=== PATIENT | female | born 1970 | race African-American/Black ===

== ENCOUNTER 2017-03-29 10:53 | Outpatient (CLI) | payer BC, OTHER | END 2017-03-29 10:54 | disposition home or self-care (01) | LOC: BICMAMMO 10:53 | DX: Z12.31 Encounter for screening mammogram for malignant neoplasm of breast (principal); R92.1 Mammographic calcification found on diagnostic imaging of breast; Z80.3 Family history of malignant neoplasm of breast | CPT/HCPCS: 77063; 77067 ==

== ENCOUNTER 2019-10-03 05:28 | Emergency (ER) | payer BC, SELFPAY ==
[2019-10-03 06:00] LABS: Bilirubin Negative (Negative); Blood, Urine Negative (Negative); Clarity Clear (Clear); Glucose, Urine (Dipstick) Normal (Negative); Ketone, Urine Negative (Negative); Leukocyte Negative Leu/uL (Negative); Nitrite Negative (Negative); Protein, Urine (Dipstick) Negative (Neg-Trace); Specific Gravity, Urine 1.005 (1.002-1.036); Urobilinogen Normal mg/dL (Less than 2); pH, Urine 7.5 (5.0-9.0)
[2019-10-03 06:02] LABS: Pregnancy Test - Urine (BHCG) Negative (Negative); Pregu Control Background? CLEAR/WHITE (CLR/WHITE); Pregu Control Bar Appear? YES (CONTROL BAR); Specific Gravity 1.005 (1.002-1.036)
--- NOTE | 2019-10-03 07:28 | RAD ---
RADIOGRAPH CHEST 1 VIEW: DATE: 10/03/2019 HISTORY: 49-year-old female with cough FINDINGS: There are no consolidations, pulmonary edema, pneumothorax, or cardiomegaly. The lateral costophrenic angles are sharp. Slightly prominent interstitial markings at lower lung zones bilaterally, left greater than right, nonspecific. IMPRESSION: No conclusive evidence of acute cardiopulmonary disease.
== END 2019-10-03 07:01 | disposition home or self-care (01) ==
LOC: ERS 05:28
DX: J02.9 Acute pharyngitis, unspecified (principal); M54.9 Dorsalgia, unspecified; D64.9 Anemia, unspecified; Z79.899 Other long term (current) drug therapy
CPT/HCPCS: 71045; 81003; 81025

== ENCOUNTER 2019-11-19 15:40 | Outpatient (CLI) | payer OTHER ==
--- NOTE | 2019-11-19 15:59 | RAD ---
XR Shoulder Rt 3 View STANDARD HISTORY: Right shoulder pain FINDINGS: No fracture or dislocation is identified. There are mild degenerative changes in the acromioclavicula r joint. There is a right cervical rib.
== END 2019-11-19 15:41 | disposition home or self-care (01) ==
LOC: RAD-FRANK 15:40
PROVIDERS: ATTEND Nurse Practitioner Family
DX: M25.511 Pain in right shoulder (principal)

== ENCOUNTER 2020-05-05 14:54 | Outpatient (CLI) | payer OTHER ==
--- NOTE | 2020-05-05 15:20 | RAD ---
LEFT FOOT THREE VIEWS: 05/05/20 HISTORY: Foot pain. COMPARISON: None. FINDINGS: No acute displaced fracture or malalignment. Soft tissues are unremarkable. IMPRESSION: No acute osseous abnormality. POS: [facility]
== END 2020-05-05 14:55 | disposition home or self-care (01) ==
LOC: BICRAD 14:54
PROVIDERS: ATTEND Nurse Practitioner Family
DX: M79.672 Pain in left foot (principal)